=== PATIENT | male | born 1980 | race Hispanic/Latino ===

== ENCOUNTER → 2020-10-30 10:33 | Outpatient (CLI) | payer BC, SELFPAY ==
[2020-10-30 12:26] LABS: COVID19 -Nasal RAPID Negative (Negative)
== END ==
PROVIDERS: Visit Provider Nurse Practitioner Family
DX: R51.9 Headache, unspecified (principal); R09.81 Nasal congestion
CPT/HCPCS: 87635

== ENCOUNTER 2022-07-04 19:42 | Emergency (ER) | payer BC, SELFPAY ==
[2022-07-04 19:45] VITALS: PULSE 78; RESP 16; TEMP 38.1; O2SAT 97; BMI 31.5
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
--- NOTE | 2022-07-05 01:25 | PC.NURSE ---
While provider at bedside completing physical assessment, patient continues to become agitated and frustrated with plan of care. MD expresses concerns and offers patient bloodwork to be completed and reassessing vital signs. After MD leaves room, patient exits room and begins walking out of ED, stating to staff he is leaving. Patient eloped from department at 0125. No IV in place at time patient left department.
== END 2022-07-05 01:25 | disposition left against medical advice (07) ==
PROVIDERS: Emergency Provider Emergency Medicine
DX: R50.9 Fever, unspecified (principal); Z53.29 Procedure and treatment not carried out because of patient's decision for other reasons
CPT/HCPCS: 99281

== ENCOUNTER 2022-10-20 14:52 | Emergency (ER) | payer BC, SELFPAY ==
[2022-10-20 15:04] VITALS: BP 118/56; PULSE 85; RESP 17; TEMP 36.6; O2SAT 97; BMI 31.0
--- NOTE | 2022-10-20 15:07 | DI.CT.S_ITS ---
PROCEDURE: CT FACIAL BONES WO CON INDICATIONS: jaw injury TECHNIQUE: Noncontrast 2.5 mm thick axial images acquired from the mandible through the frontal sinuses, with coronal and sagittal reformatting. For radiation dose reduction, the following was used: automated exposure control, adjustment of mA and/or kV according to patient size. COMPARISON: None. FINDINGS: Image quality: Excellent. Bones and teeth: At the marked area of clinical concern, there is a fracture seen of the mandibular ramus, moderate displacement and overlapping of fracture fragments. The mandibular condyle is not dislocated. No additional mandible fracture is seen. Orbital mann are intact. Sinus mann show no fracture or deformity. Nasal bones and septum are intact. Zygomatic arches are intact. Pterygoid plates are intact. Visualized portions of the skull base and auditory canals are intact. Sinuses: Paranasal sinuses are aerated, without fluid levels, mucosal thickening, or mucoceles. Mastoid air cells are aerated. Soft tissues: No edema, masses, or fluid collections. No enlarged lymph nodes. No soft tissue lacerations or debris. Vascular: Visualized vascular structures appear normal in the absence of contrast. Bony vascular foramina and canals are intact. IMPRESSION: Moderately displaced fracture of the right mandibular ramus, with overlapping of fracture fragments. Dictated by: Romain Kent M.D. on 10/20/2022 at 14:35 Approved by: Romain Kent M.D. on 10/20/2022 at 14:37
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
[2022-10-20 17:24] VITALS: BP 113/69; PULSE 68; RESP 16; O2SAT 99
== END 2022-10-20 17:25 | disposition home or self-care (01) ==
PROVIDERS: Emergency Provider Emergency Medicine
DX: S02.609A Fracture of mandible, unspecified, initial encounter for closed fracture (principal); Y04.2XXA Assault by strike against or bumped into by another person, initial encounter
CPT/HCPCS: 36415; 70486; 99283; 99284

== ENCOUNTER 2024-05-26 03:31 | Emergency (ER) | payer OTHER, SELFPAY ==
[2024-05-26 03:47] VITALS: BP 137/60; PULSE 73; RESP 18; TEMP 36.6; O2SAT 97; BMI 34.4
--- NOTE | 2024-05-26 03:48 | ED_ITS ---
HPI - General Adult General Chief complaint: Extremity Injury, Lower Stated complaint: left thigh injury at work Time Seen by Provider: 05/26/24 03:41 History of Present Illness HPI narrative: 43-year-old male without any significant past medical history comes into the ED from home for evaluation of left groin/hip pain. He states that yesterday he was at work, states that he was going up and down a ladder states that at the end of the day he did feel a slight/small ?twinge to his left inner thigh/groin area, states that he went to sleep feeling fine woke up and the pain was intensified causing him difficulty ambulating secondary to the pain, however he denies any numbness weakness tingling to the lower extremity, denies any bowel or urinary incontinence, denies any saddle paresthesias. He denies any actual testicular pain. Denies any trauma or falls. Not on any blood thinners. Related Data Previous Rx's Medication Instructions Recorded hydrocodone 5 mg-acetaminophen 325 1 tab PO Q6H PRN pain #14 tabs 10/20/22 mg tablet cyclobenzaprine 10 mg tablet 10 mg PO BEDTIME PRN muscle spasm 05/26/24 1 week #7 tabs tramadol 50 mg tablet 50 mg PO BID PRN pain 3 days #6 05/26/24 tabs Allergies Allergy/AdvReac Type Severity Reaction Status Date / Time No Known Drug Allergies Allergy Verified 07/04/22 19:53 Review of Systems Review of Systems Narrative: General: Denies fever, chills, weight loss HEENT: Denies headache, eye drainage, eye irritation, head trauma, sore throat, voice change Cardiovascular: Denies any chest pain, palpitations, tachycardia Respiratory: Denies any shortness of breath, cough, wheeze, stridor GI/: Denies any abdominal pain, nausea, vomiting, diarrhea, bright red blood per rectum, melanotic stools, urinary frequency, urinary retention, dysuria, hematuria MSK: Positive left groin/thigh pain Skin: Denies any rashes, lesions, discoloration Neuro: Denies any headache, lightheadedness, dizziness, fainting, weakness Psych: Denies SI/HI Patient History Alcohol type: other Exam Narrative Exam Narrative: General: Cooperative, well-developed, not in acute distress HEENT: Normocephalic, atraumatic, PERRLA, normal sclera, eyelids normal Neck: Active full range of motion, atraumatic Chest: Normal to inspection, negative crepitus, no overlying erythema ecchymosis Respiratory: Normal respiratory effort, not in acute respiratory distress, clear to auscultation bilaterally negative cough, wheeze, tachypnea, rhonchi, rales Cardiology: Regular rate rhythm negative gallop, murmur, rubs GI/: No tenderness to palpation, soft, non rigid, normal to inspection, no inguinal hernias noted, no tenderness to palpation of the scrotum/testicles, MSK: Patient with decreased active and passive range of motion of the left thigh secondary to pain however there is no overlying erythema ecchymosis gross deformity, neurovascularly intact Skin: No rashes or lesions noted Neuro: Alert awake oriented x3, moves all 4 extremities spontaneously, cranial nerves intact, able to answer all questions appropriately follows commands appropriately Psych: Cooperative, negative suicidal or homicidal ideations Initial Vital Signs Initial Vital Signs: Vital Signs Temperature 97.9 F 05/26/24 03:47 Pulse Rate 73 05/26/24 03:47 Respiratory Rate 18 05/26/24 03:47 Blood Pressure 137/60 05/26/24 03:47 Pulse Oximetry 97 05/26/24 03:47 Oxygen Delivery Method Room Air 05/26/24 03:47 Course Orders Ordered: ED Orders 05/26/24 03:53 XR hip LT 1V Stat Discontinued Medications Ketorolac Tromethamine (Ketorolac 30 Mg/Ml Vial) 15 mg IM NOW ONE Stop: 05/26/24 03:53 Last Admin: 05/26/24 03:56 Dose: 15 mg Documented By: LS Vital Signs Vital signs: Vital Signs - 8 hr 05/26/24 03:47 Temperature 97.9 F Pulse Rate 73 Respiratory Rate 18 Blood Pressure 137/60 Pulse Oximetry 97 Oxygen Delivery Method Room Air Medical Decision Making Differential Diagnosis Differential Diagnosis: Hernia, ligamentous strain, arthritis Imaging Data Extremity x-ray #1: Radiologist's Impression: Preliminary read showing no acute traumatic injury MDM Narrative Medical decision making narrative: 43-year-old male no significant past medical history comes into the ED from home for evaluation of left groin//thigh pain. He states that yesterday he was at work going up and down a ladder multiple times states that at the end of the day he did feel slight twinge/pain to his left groin/thigh but denies any trauma or falls. States that he went to sleep woke up and the pain is worse, on exam he is neurovascularly intact he has no red flags for cauda equina he is not having any low back pain. He has decreased active passive range of motion of the left hip secondary to pain however is able to stand bear weight ambulate unassisted however slowed secondary to the pain. He has no testicular pain on palpation no inguinal hernias on exam. Patient had Toradol and x-ray performed here in the emergency department. X-ray without any acute findings, patient had significant improvement of symptoms after administration of Toradol, he was given strict return precautions he verbalized understanding of this and agrees to being discharged home with outpatient follow up Discharge Plan Departure Patient Disposition: Home Clinical Impression: Left groin pain Activity Restrictions/Additional Instructions: Please follow up with your primary care doctor Please read the discharge instructions sheet carefully and bring all papers to all doctor follow-up visits, as it may contain information that your doctor may want to see. Disease processes change and evolve, if your symptoms worsen or if you develop any new symptoms that are concerning to you please return for evaluation. Your evaluation today does not show any evidence of any life- threatening/serious illnesses requiring admission to the hospital or surgery. Please follow-up with your doctor for re-evaluation in approximately 1 day. Seek immediate medical attention for any worrisome symptoms. *If you do not have a primary care provider please contact the [facility] Resource line at [phone]. They will ask some questions about your medical history and help get you set up with a doctor in the community. Prescriptions: New tramadol 50 mg tablet 50 mg PO BID PRN (Reason: pain) 3 Days Qty: 6 0RF cyclobenzaprine 10 mg tablet 10 mg PO BEDTIME PRN (Reason: muscle spasm) 7 Days Qty: 7 0RF No Action hydrocodone-acetaminophen 5-325 mg tablet 1 tab PO Q6H PRN (Reason: pain) Qty: 14 0RF Stand Alone Forms: Patient Portal/API/Survey, Work Release Note
--- NOTE | 2024-05-26 03:53 | DI.RAD.S_ITS ---
PROCEDURE: XR HIP LT 1V INDICATIONS: left hip/groin pain TECHNIQUE: One-view of the hip were acquired. COMPARISON: None. FINDINGS: Bones: No acute fractures or dislocations on this single frontal view. No suspicious bony lesions. The visualized pelvic ring appears intact. Soft tissues: No suspicious soft tissue calcifications or masses. IMPRESSION: No acute osseous abnormality. If there is continued clinical concern or persistent symptoms, repeat radiographs or cross-sectional imaging (e.g. CT, MRI) may be helpful for further evaluation. Approved by: Devang Anguiano M.D. on 05/26/2024 at 8:31
[2024-05-26] MEDS: KETOROLAC 30 MG/ML VIAL 15 MG IM (03:56)
--- NOTE | 2024-05-26 04:38 | PC.NURSE ---
Pt to imaging via wheel chair with fingerprint technician.
[2024-05-26 05:18] VITALS: BP 124/78; PULSE 90; RESP 18; O2SAT 96
== END 2024-05-26 05:19 | disposition home or self-care (01) ==
PROVIDERS: Emergency Provider Student in an Organized Health Care Education/Training Program
DX: R10.32 Left lower quadrant pain (principal); X58.XXXA Exposure to other specified factors, initial encounter
CPT/HCPCS: 73501; 96372; 99283; J1885